=== PATIENT | female | born 1985 | race Two or more races ===

== ENCOUNTER 2020-11-03 16:26 | Emergency (ER) | payer MEDICAID ==
[~2020-11-03] VITALS: Ht 165.1 cm; Wt 58.1 kg
[2020-11-03 16:26] VITALS: BP 124/61
--- NOTE | 2020-11-03 16:30 | NUR ---
AAOX3, BIB c/o left sided chest pain and sob x "couple of months" speaks in full sentences with CHI7=069% on RA. RR is even and unlabored with nad noted. Skin is warm and dry. Awaiting md for eval.
--- NOTE | 2020-11-03 16:48 | NUR ---
Dr Salazar at [facility] for eval.
== END 2020-11-03 17:32 | disposition home or self-care (01) ==
LOC: ER 16:26
DX: R07.89 Other chest pain (principal); F41.9 Anxiety disorder, unspecified; Z98.890 Other specified postprocedural states

== ENCOUNTER 2021-07-28 09:46 | Emergency (ER) | payer MEDICAID ==
[~2021-07-28] VITALS: Ht 165.1 cm; Wt 65.8 kg
--- NOTE | 2021-07-28 09:57 | NUR ---
TO ER BED 4, C/O LWR BACK PAIN STARTED YESTERDAY, AAOX3, BREATHING EVEN AND NON LABORED, CHANGED INTO A GOWN, ATTACHED TO MONITOR
--- NOTE | 2021-07-28 10:00 | NUR ---
URINE COLLECTED AND SENT TO THE LAB
--- NOTE | 2021-07-28 10:06 | NUR ---
DR PHELAN AT BEDSIDE FOR EVAL
[2021-07-28 10:33] LABS: BASOPHILS % (AUTO) 0.1 % (0.0-2.0); EOSINOPHILS % (AUTO) 0.7 % (0.0-6.0); HEMATOCRIT 40 % (33-45); HEMOGLOBIN 13.4 g/dL (11.5-14.8); LYMPHOCYTES # (AUTO) 2.1 K/uL (0.8-4.8); LYMPHOCYTES % (AUTO) 31.5 % (20.0-44.0); MEAN CORPUSCULAR HGB CONC 33 g/dl (31.0-36.0); MEAN CORPUSCULAR VOLUME 86 fL (82-100); MONOCYTES # (AUTO) 0.5 K/uL (0.1-1.30); MONOCYTES % (AUTO) 6.9 % (2.0-12.0); NEUTROPHILS % (AUTO) 60.8 % (43.0-81.0); PLATELET COUNT (AUTO) 288 K/uL (150-450); RED BLOOD CELL COUNT(AUTO) 4.69 MIL/uL (4.0-5.2); WHITE BLOOD COUNT (AUTO) 6.6 K/uL (4.3-11.0)
[2021-07-28 10:39] LABS: BILIRUBIN,URINE Negative (NEGATIVE); COLOR,URINE YELLOW (YELLOW); LEUKOCYTE ESTERASE ,URINE Trace (NEGATIVE); NITRITE, URINE Negative (NEGATIVE); PROTEIN,URINE Negative (NEGATIVE); UGLUCOSE Negative (NEGATIVE); UROBILINOGEN,URINE 0.2 EU/dL (0.2)
[2021-07-28 10:40] LABS: BACTERIA,URINE Rare /HPF (None Seen); RBC,URINE 0-2 /HPF (0-2); SQUAMOUS EPITHELIAL CELL,UR Few /HPF (None Seen); WBC,URINE 0-2 /HPF (0-3)
[2021-07-28] MEDS ORDERED: KETOROLAC TROMETHAMINE INJ 30 MG/ML VIAL IV ONE (11:00)
[2021-07-28 11:02] LABS: ALBUMIN 4.5 g/dL (3.4-5.0); BILIRUBIN,DIRECT 0.1 mg/dL (0.0-0.2); BILIRUBIN,TOTAL 0.3 mg/dL (0.2-1.0); CREATININE 0.7 mg/dL (0.6-1.3); POTASSIUM 4.3 mmol/L (3.5-5.1); TOTAL PROTEIN, SERUM 8.2 g/dL (6.4-8.2)
[2021-07-28] MEDS ORDERED: KETOROLAC TROMETHAMINE INJ 30 MG/ML VIAL ONE (11:11)
[2021-07-28] MEDS ORDERED: IBUP-1955 PO (11:18)
[2021-07-28] MEDS ORDERED: CYCL10TA9 PO (11:18)
[2021-07-28 11:31] VITALS: BP 118/67
--- NOTE | 2021-07-28 11:31 | NUR ---
IV removed. Catheter intact and site benign. Pressure and 4x4 applied to site. No bleeding noted.Patient discharged to home in stable condition. Written and verbal after care instructions given. Patient verbalizes understanding of instruction.
== END 2021-07-28 11:32 | disposition home or self-care (01) ==
LOC: ER 09:50
DX: M54.50 Low back pain, unspecified (principal); F41.9 Anxiety disorder, unspecified; Z98.890 Other specified postprocedural states; Z79.899 Other long term (current) drug therapy
CPT/HCPCS: 36415; 76770; 80048; 80076; 81001; 83690; 84703; 85025; 96374; 99284; J1885